=== PATIENT | male | born 1960 | race Caucasian/White ===

== ENCOUNTER 2017-03-16 10:44 | Inpatient (IN) | payer BC ==
[2017-03-16] MEDS: SODIUM CHLORIDE 0.9% FLUSH 10 ML SOL IV PRN ×3 (11:15→20:09)
[2017-03-16 11:50] LABS: BASOPHILS % (AUTO) 1 % (0-3); EOSINOPHILS % (AUTO) 2 % (0-9); HEMATOCRIT 37 % (39-53); MEAN CORPUSCULAR HGB CONC 32.5 gm/dl (32.0-36.0); MEAN CORPUSCULAR VOLUME 90 fL (80-100); MONOCYTES % (AUTO) 7.9 % (0-12); NEUTROPHILS % (AUTO) 85.3 % (37-80)
[2017-03-16 11:57] LABS: ALBUMIN 2.1 gm/dl (3.4-5.0); CALCIUM 8.1 mg/dl (8.5-10.1)
[2017-03-16] MEDS ORDERED: MORPHINE SULFATE 10 MG/ML SOL ONE (12:02)
[2017-03-16] MEDS ORDERED: MORPHINE SULFATE 10 MG/ML SOL IV ONE (12:05)
[2017-03-16] MEDS ORDERED: ENOXAPARIN 100 MG SOL SC SCH (13:45)
[2017-03-16] MEDS: MORPHINE SULFATE 10 MG/5 ML SOL PO PRN ×2 (16:06→21:22)
[2017-03-16] MEDS ORDERED: WARFARIN SODIUM 4 MG TAB PO SCH (17:45)
[2017-03-16] MEDS ORDERED: WARFARIN SODIUM 4 MG TAB PO ONE (18:00)
[2017-03-16] MEDS ORDERED: POLYETHYLENE GLYCOL 17 GM/1 TBS PDS PO PRN (19:07)
[2017-03-16] MEDS ORDERED: BISACODYL 10 MG SUP PR PRN (19:07)
[2017-03-16] MEDS ORDERED: FENTANYL 12 MCG PATCH TDM TD PRN (19:07)
[2017-03-16] MEDS ORDERED: LORATADINE 10 MG TAB PO PRN (19:07)
[2017-03-16] MEDS: MORPHINE SULFATE 15 MG ER TAB PO SCH (20:03)
[2017-03-16] MEDS: DOCUSATE SODIUM 100 MG SGL PO SCH (20:04)
[2017-03-16] MEDS: SENNOSIDES A AND B 8.6 MG TAB PO SCH (20:04)
[2017-03-17] MEDS: MORPHINE SULFATE 10 MG/5 ML SOL PO PRN ×5 (02:31→21:13)
[2017-03-17] MEDS: SODIUM CHLORIDE 0.9% FLUSH 10 ML SOL IV SCH ×3 (06:15→22:00)
[2017-03-17] MEDS: SODIUM CHLORIDE 0.9% FLUSH 10 ML SOL IV PRN ×2 (06:33→06:37)
[2017-03-17 07:08] LABS: CALCIUM 7.7 mg/dl (8.5-10.1); POTASSIUM 3.8 mMol/L (3.5-5.1)
[2017-03-17] MEDS: SENNOSIDES A AND B 8.6 MG TAB PO SCH ×2 (08:27→21:59)
[2017-03-17] MEDS: DOCUSATE SODIUM 100 MG SGL PO SCH ×2 (08:27→21:58)
[2017-03-17] MEDS: MORPHINE SULFATE 15 MG ER TAB PO SCH ×2 (08:35→21:11)
[2017-03-17] MEDS: DEXTROSE/SALINE 0.45/KCL 20MEQ 1,000 ML/1,000 ML SOL IV SCH (11:22)
[2017-03-17] MEDS ORDERED: WARFARIN SODIUM 4 MG TAB PO ONE (18:00)
[2017-03-17] MEDS ORDERED: DIAZEPAM 5 MG TAB PO PRN (19:47)
[2017-03-18] MEDS: DEXTROSE/SALINE 0.45/KCL 20MEQ 1,000 ML/1,000 ML SOL IV SCH ×2 (01:11→16:19)
[2017-03-18] MEDS: MORPHINE SULFATE 10 MG/5 ML SOL PO PRN ×4 (04:03→20:36)
[2017-03-18] MEDS: SODIUM CHLORIDE 0.9% FLUSH 10 ML SOL IV SCH ×3 (04:18→22:10)
[2017-03-18 07:17] LABS: CALCIUM 7.8 mg/dl (8.5-10.1); POTASSIUM 4.2 mMol/L (3.5-5.1)
[2017-03-18] MEDS: DOCUSATE SODIUM 100 MG SGL PO SCH ×2 (08:16→20:35)
[2017-03-18] MEDS: SENNOSIDES A AND B 8.6 MG TAB PO SCH ×2 (08:17→20:35)
[2017-03-18] MEDS: MORPHINE SULFATE 15 MG ER TAB PO SCH ×2 (08:18→20:36)
[2017-03-18] MEDS ORDERED: SODIUM CHLORIDE 0.9% 500 ML 500 ML IV ONE (10:51)
[2017-03-18] MEDS: ONDANSETRON HCL 4 MG TAB PO PRN (10:56)
[2017-03-18] MEDS ORDERED: SODIUM CHLORIDE 0.9% 250 ML 250 ML IV ONE (17:11)
[2017-03-18] MEDS ORDERED: WARFARIN SODIUM 2 MG TAB PO SCH (18:00)
[2017-03-18] MEDS ORDERED: FENTANYL 25 MCG PATCH TDM TD SCH (21:15)
[2017-03-18] MEDS ORDERED: DEXTROSE/SALINE 0.45/KCL 20MEQ 1,000 ML/1,000 ML SOL IV SCH (22:00)
[2017-03-19] MEDS: MORPHINE SULFATE 10 MG/5 ML SOL PO PRN ×5 (01:53→20:49)
[2017-03-19] MEDS: SODIUM CHLORIDE 0.9% FLUSH 10 ML SOL IV SCH ×3 (04:01→19:22)
[2017-03-19 07:13] LABS: CALCIUM 7.8 mg/dl (8.5-10.1); POTASSIUM 4.6 mMol/L (3.5-5.1)
[2017-03-19 07:28] LABS: BASOPHILS % (AUTO) 1 % (0-3); EOSINOPHILS % (AUTO) 2 % (0-9); HEMATOCRIT 32 % (39-53); MEAN CORPUSCULAR VOLUME 89 fL (80-100); NEUTROPHILS % (AUTO) 85.8 % (37-80)
[2017-03-19] MEDS: ONDANSETRON HCL 4 MG TAB PO PRN (07:42)
[2017-03-19] MEDS: DOCUSATE SODIUM 100 MG SGL PO SCH ×2 (08:50→20:49)
[2017-03-19] MEDS: SENNOSIDES A AND B 8.6 MG TAB PO SCH ×2 (08:50→20:48)
[2017-03-19] MEDS ORDERED: FENTANYL 25 MCG PATCH TDM TD SCH ×2 (08:50→18:00)
[2017-03-19] MEDS ORDERED: FENTANYL 12 MCG PATCH TDM TD SCH (09:00)
[2017-03-19] MEDS ORDERED: FENTANYL 50 MCG PATCH TDM TD SCH ×2 (09:00→18:00)
[2017-03-19] MEDS: SODIUM CHLORIDE 0.9% 1000ML 1,000 ML IV SCH ×2 (09:30→19:36)
[2017-03-19] MEDS ORDERED: WARFARIN SODIUM 1 MG TAB PO ONE (18:00)
[2017-03-20] MEDS: MORPHINE SULFATE 10 MG/5 ML SOL PO PRN (01:18)
[2017-03-20] MEDS: SODIUM CHLORIDE 0.9% FLUSH 10 ML SOL IV SCH (04:21)
[2017-03-20] MEDS ORDERED: MORPHINE SULFATE 15 MG ER TAB PO ONE ×2 (05:00→15:47)
[2017-03-20] MEDS: SODIUM CHLORIDE 0.9% 1000ML 1,000 ML IV SCH (05:41)
[2017-03-20 07:15] LABS: CALCIUM 7.6 mg/dl (8.5-10.1); POTASSIUM 4.3 mMol/L (3.5-5.1)
[2017-03-20 07:24] LABS: BASOPHILS % (AUTO) 1 % (0-3); EOSINOPHILS % (AUTO) 2 % (0-9); HEMATOCRIT 30 % (39-53); MEAN CORPUSCULAR HGB CONC 33.9 gm/dl (32.0-36.0); MEAN CORPUSCULAR VOLUME 89 fL (80-100); MONOCYTES % (AUTO) 6.1 % (0-12); NEUTROPHILS % (AUTO) 88.9 % (37-80)
[2017-03-20] MEDS ORDERED: LORAZEPAM 0.5 MG TAB PO PRN (08:44)
[2017-03-20] MEDS ORDERED: FENTANYL 100 MCG TD SCH (08:45)
[2017-03-20] MEDS: DOCUSATE SODIUM 100 MG SGL PO SCH ×2 (09:01→20:31)
[2017-03-20] MEDS: SENNOSIDES A AND B 8.6 MG TAB PO SCH ×2 (09:01→20:31)
[2017-03-20] MEDS: HEPARIN 500 Unit PRE-FILL 100 U/ML SOL IV PRN (09:15)
[2017-03-20] MEDS: MORPHINE SULFATE 20 MG/1 ML SOL PO PRN ×8 (09:51→22:48)
[2017-03-20] MEDS ORDERED: WARFARIN SODIUM 1 MG TAB PO ONE (18:00)
[2017-03-20] MEDS: MORPHINE SULFATE 15 MG ER TAB PO SCH (20:28)
[2017-03-21] MEDS: ONDANSETRON HCL 4 MG TAB PO PRN ×2 (00:05→09:43)
[2017-03-21] MEDS: MORPHINE SULFATE 20 MG/1 ML SOL PO PRN ×4 (00:06→10:30)
[2017-03-21 00:17] VITALS: RESP 16
[2017-03-21] MEDS: MORPHINE SULFATE 15 MG ER TAB PO SCH (05:18)
[2017-03-21] MEDS: DOCUSATE SODIUM 100 MG SGL PO SCH (09:03)
[2017-03-21] MEDS: SENNOSIDES A AND B 8.6 MG TAB PO SCH (09:03)
[2017-03-21] MEDS: SODIUM CHLORIDE 0.9% FLUSH 10 ML SOL IV PRN (09:44)
[2017-03-21] MEDS: HEPARIN 500 Unit PRE-FILL 100 U/ML SOL IV PRN (09:44)
[2017-03-21 10:24] VITALS: BP 95/60; PULSE 106; TEMP 98.6; O2SAT 97
[2017-03-21] MEDS ORDERED: WARFARIN SODIUM 1 MG TAB PO ONE (18:00)
== END 2017-03-21 10:50 | disposition hospice, inpatient (51) | DRG 134 ==
LOC: ED 10:44 → ACUTE CARE 13:04
PROVIDERS: ADMIT Emergency Medicine; ATTEND Emergency Medicine
DX: I26.99 Other pulmonary embolism without acute cor pulmonale (principal); C25.9 Malignant neoplasm of pancreas, unspecified; C79.9 Secondary malignant neoplasm of unspecified site; Z79.01 Long term (current) use of anticoagulants; K59.03 Drug induced constipation
CPT/HCPCS: 36415; 71010; 80048; 80053; 85025; 85610; 85730; 94760; 96374; 99070; 99231; 99283; 99284; J1644; J1650; J2270; A6232